=== PATIENT | female | born 1940 | race Caucasian/White ===

== ENCOUNTER 2021-12-18 14:04 | Inpatient (IN) | payer MEDICARE ==
[~2021-12-18] VITALS: Ht 160 cm; Wt 45.5 kg
[2021-12-18 17:06] LABS: HEMOGLOBIN 9.1 gm/dl (12.3-15.3); RED BLOOD COUNT 3.06 M/UL (4.00-5.10)
[2021-12-18] MEDS ORDERED: BUMETANIDE1 MG PO (17:15)
[2021-12-18] MEDS ORDERED: IPRAT-ALBUT 0.5-3 ML INH (17:15)
[2021-12-18] MEDS ORDERED: VITAMIN C500 M4 PO (17:15)
[2021-12-18] MEDS ORDERED: ELIQUIS5 MG PO (17:16)
[2021-12-18] MEDS ORDERED: CARVEDILOL12.5 MG PO (17:17)
[2021-12-18] MEDS ORDERED: ZETIA10 MG PO (17:18)
[2021-12-18] MEDS ORDERED: FEROSUL325 MG PO (17:18)
[2021-12-18] MEDS ORDERED: CLOPIDOGREL75 MG PO (17:18)
[2021-12-18] MEDS ORDERED: VITAMIN D21250 MCG PO (17:19)
[2021-12-18] MEDS ORDERED: VALSARTAN160 MG PO (17:19)
[2021-12-18] MEDS ORDERED: SPIRONOLACTONE25 MG PO (17:20)
[2021-12-18] MEDS ORDERED: SYMBICORT 160-1 INHA INH (17:20)
[2021-12-18] MEDS ORDERED: ASPIRIN EC81 MG PO (17:21)
[2021-12-18 18:02] LABS: BUN/CREATININE RATIO 29 (0-10)
[2021-12-19 05:36] LABS: HEMOGLOBIN 10.6 gm/dl (12.3-15.3); WHITE BLOOD COUNT 6.2 K/UL (4.5-11.0)
[2021-12-19 05:38] LABS: RED BLOOD COUNT 3.54 M/UL (4.00-5.10)
[2021-12-20 02:30] LABS: HEMOGLOBIN 8.7 gm/dl (12.3-15.3)
[2021-12-20 02:35] LABS: RED BLOOD COUNT 2.94 M/UL (4.00-5.10)
[2021-12-21 02:31] LABS: HEMOGLOBIN 8.9 gm/dl (12.3-15.3); RED BLOOD COUNT 2.96 M/UL (4.00-5.10)
[2021-12-22 06:20] LABS: HEMOGLOBIN 8.5 gm/dl (12.3-15.3); RED BLOOD COUNT 2.82 M/UL (4.00-5.10)
[2021-12-22 06:25] LABS: WHITE BLOOD COUNT 3.4 K/UL (4.5-11.0)
[2021-12-23 01:52] LABS: RED BLOOD COUNT 2.67 M/UL (4.00-5.10); WHITE BLOOD COUNT 3.4 K/UL (4.5-11.0)
[2021-12-23 15:55] LABS: HEMOGLOBIN 8.8 gm/dl (12.3-15.3)
[2021-12-24 01:49] LABS: HEMOGLOBIN 8.2 gm/dl (12.3-15.3); RED BLOOD COUNT 2.72 M/UL (4.00-5.10); WHITE BLOOD COUNT 3.9 K/UL (4.5-11.0)
[2021-12-25 02:23] LABS: HEMOGLOBIN 8.5 gm/dl (12.3-15.3); RED BLOOD COUNT 2.84 M/UL (4.00-5.10); WHITE BLOOD COUNT 3.8 K/UL (4.5-11.0)
[2021-12-26 02:44] LABS: HEMOGLOBIN 8.5 gm/dl (12.3-15.3); RED BLOOD COUNT 2.83 M/UL (4.00-5.10); WHITE BLOOD COUNT 3.5 K/UL (4.5-11.0)
[2021-12-27 08:27] LABS: HEMOGLOBIN 10.2 gm/dl (12.3-15.3); WHITE BLOOD COUNT 3.5 K/UL (4.5-11.0)
[2021-12-27 08:29] LABS: RED BLOOD COUNT 3.31 M/UL (4.00-5.10)
--- NOTE | 2021-12-27 16:35 | NUR ---
PT O2 SATURATION ON ROOM AIR WAS 87%
[2021-12-28 01:59] LABS: HEMOGLOBIN 8.8 gm/dl (12.3-15.3); WHITE BLOOD COUNT 3.6 K/UL (4.5-11.0)
[2021-12-28 02:14] LABS: RED BLOOD COUNT 2.91 M/UL (4.00-5.10)
[2021-12-28] MEDS ORDERED: PROTONIX 40 MG40 M1 PO (11:18)
[2021-12-28] MEDS ORDERED: CARVEDILOL25 MG PO (11:18)
[2021-12-28] MEDS ORDERED: SENOKOT-S TABL1 EACH PO (11:18)
[2021-12-28] MEDS ORDERED: NORVASC10 MG PO (11:18)
== END 2021-12-28 13:10 | disposition home or self-care (01) | DRG 377 ==
LOC: PROG CARE 16:21 → CCU 16:21 → PROG CARE 12-19 23:30
PROVIDERS: Internal Medicine; Internal Medicine Gastroenterology; Internal Medicine Infectious Disease; ADMIT Internal Medicine
PROC: B24BZZZ Ultrasonography of Heart with Aorta (ICD-10-PCS; 2021-12-19)
PROC: 0DB68ZX Excision of Stomach, Via Natural or Artificial Opening Endoscopic, Diagnostic (ICD-10-PCS; 2021-12-22)
PROC: 0DBK8ZZ Excision of Ascending Colon, Via Natural or Artificial Opening Endoscopic (ICD-10-PCS; principal; 2021-12-22 11:30)
DX: K25.4 Chronic or unspecified gastric ulcer with hemorrhage (principal); I50.23 Acute on chronic systolic (congestive) heart failure; I26.99 Other pulmonary embolism without acute cor pulmonale; J96.21 Acute and chronic respiratory failure with hypoxia; J18.9 Pneumonia, unspecified organism; I13.0 Hypertensive heart and chronic kidney disease with heart failure and stage 1 through stage 4 chronic kidney disease, or unspecified chronic kidney disease; D62 Acute posthemorrhagic anemia; N17.9 Acute kidney failure, unspecified; J44.0 Chronic obstructive pulmonary disease with (acute) lower respiratory infection; D50.9 Iron deficiency anemia, unspecified; N18.30 Chronic kidney disease, stage 3 unspecified; K63.5 Polyp of colon; I73.9 Peripheral vascular disease, unspecified; E87.6 Hypokalemia; K57.30 Diverticulosis of large intestine without perforation or abscess without bleeding; K64.8 Other hemorrhoids; E78.5 Hyperlipidemia, unspecified; Z88.1 Allergy status to other antibiotic agents; Z90.49 Acquired absence of other specified parts of digestive tract; Z90.710 Acquired absence of both cervix and uterus; Z98.42 Cataract extraction status, left eye; Z98.41 Cataract extraction status, right eye; Z85.850 Personal history of malignant neoplasm of thyroid; Z98.890 Other specified postprocedural states; Z87.891 Personal history of nicotine dependence; Z80.0 Family history of malignant neoplasm of digestive organs; Z79.82 Long term (current) use of aspirin; Z79.01 Long term (current) use of anticoagulants; Z79.899 Other long term (current) drug therapy; Z79.02 Long term (current) use of antithrombotics/antiplatelets; Z85.828 Personal history of other malignant neoplasm of skin
CPT/HCPCS: ECHO; 36415; 70450; 71045; 76705; 80048; 80053; 82550; 82553; 82607; 82746; 83540; 83550; 83615; 83735; 83880; 84132; 84443; 84484; 85014; 85018; 85025; 85027; 85045; 85610; 85730; 88342; 93005; 93306; 94640; 94664; 94760; 97116; 97116-GP-CQ; 97161; 97530-GP-CQ; C9113; J0360; J1644; J1756; J1940; J2704; J3480; J7040